=== PATIENT | male | born 1995 | race African-American/Black ===

== ENCOUNTER 2021-03-30 09:31 | Emergency (ER) | payer OTHER ==
[~2021-03-30] VITALS: Ht 190.5 cm; Wt 103.7 kg
[2021-03-30] MEDS ORDERED: FLUORESCEIN OPHTH 1 MG STRIP OS ONE (10:30)
[2021-03-30] MEDS ORDERED: TETRACAINE 0.5% OPHTH SOLN 4ML OS ONE (10:30)
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
[2021-03-30 12:21] VITALS: BP 134/78
== END 2021-03-30 13:07 | disposition short-term general hospital (02) ==
LOC: M ED 09:31
DX: H53.132 Sudden visual loss, left eye (principal); I10 Essential (primary) hypertension; S05.92XA Unspecified injury of left eye and orbit, initial encounter; X58.XXXA Exposure to other specified factors, initial encounter; Y92.89 Other specified places as the place of occurrence of the external cause

== ENCOUNTER 2021-05-13 22:31 | Emergency (ER) | payer OTHER ==
[2021-05-13 22:32] VITALS: BP 127/71
[2021-05-14 01:17] LABS: RSV AMPLIFICATION NEGATIVE (NEGATIVE)
== END 2021-05-14 01:14 | disposition left against medical advice (07) ==
LOC: M ED 22:31
DX: Z53.29 Procedure and treatment not carried out because of patient's decision for other reasons (principal)

== ENCOUNTER 2023-09-04 01:15 | Emergency (ER) | payer OTHER ==
[2023-09-04] MEDS ORDERED: BACT800T5 PO (20:07)
== END 2023-09-04 01:35 | disposition left against medical advice (07) ==
LOC: M ED 01:15
DX: Z53.21 Procedure and treatment not carried out due to patient leaving prior to being seen by health care provider (principal)

== ENCOUNTER 2023-09-04 17:20 | Emergency (ER) | payer OTHER ==
[~2023-09-04] VITALS: Ht 190.5 cm; Wt 105.6 kg
[2023-09-04 17:20] VITALS: BP 128/84; TEMP 98.1; O2SAT 98
[2023-09-04] MEDS: LIDOCAINE W/EPINEPHRINE 1% 20ML VIAL SC ONE (19:50)
[2023-09-04] MEDS ORDERED: BACT800T5 PO (20:07)
[2023-09-04] MEDS: BACTRIM 160MG/800MG DS TAB PO ONE (20:08)
== END 2023-09-04 20:18 | disposition home or self-care (01) ==
LOC: M ED 17:20
DX: L03.312 Cellulitis of back [any part except buttock and flank] (principal)